=== PATIENT | female | born 1965 | race Caucasian/White ===

== ENCOUNTER 2016-12-13 17:50 | Emergency (ER) | payer MEDICARE ==
[2016-12-13] MEDS ORDERED: IPRATROPIUM-ALBUTEROL 3 ML NEB INHALATION STA (18:11)
[2016-12-13] MEDS ORDERED: methylPREDNISolone SOD SUCCI 125 MG/2 ML VIAL IV STA (18:11)
[2016-12-13] MEDS ORDERED: LORazepam 2 MG/ML SYRINGE IV STA (18:11)
[2016-12-13] MEDS ORDERED: SODIUM CHLORIDE 0.9% 1,000 ML IV STA (18:11)
--- NOTE | 2016-12-13 18:19 | ED ---
URI HPI - General Chief Complaint: Upper Respiratory Infection Stated Complaint: congestion,withdrawls Time Seen by Provider: 12/13/16 18:01 Source: patient, RN notes reviewed, old records reviewed Mode of arrival: ambulatory Limitations: no limitations - History of Present Illness Initial Comments: This is a 51-year-old female presenting to the emergency department from [facility] with chief complaint of shortness of breath, cough and congestion for the past day. She also reports that she is going through withdrawals and did not receive any Ativan today. She reports that she's had severe shaking. She denies any upper respiratory symptoms including cough until today. She states that she is coughing to the point where she's vomited. 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 Patient reports last drink was last Tuesday. She states that she also has a history of [employer] shunt. Per the records from [facility] they sent her here to have a CAT scan for concern of abnormalities with her shunt. Patient denies any headache or any new neurological complaints besides the shakiness. She relates that that is only 2 to withdrawals. Patient reports no specific fever or chills. She reports that she has no history of asthma. Surgical history includes hysterectomy, [employer] shunt, thyroidectomy. - Related Data Home Medications Medication Instructions Recorded Confirmed Levothyroxine Sodium [Synthroid] 200 mcg PO DAILY 12/13/16 12/13/16 Previous Rx's Medication Instructions Recorded Albuterol Inhaler [Ventolin Hfa 1 - 2 puff INHALATION Q6HR PRN #1 12/13/16 Inhaler] inhaler Azithromycin [Zithromax] 250 mg PO DIRECTED #4 tab 12/13/16 Benzonatate [Tessalon Perles] 100 mg PO TID PRN #20 capsule 12/13/16 predniSONE 50 mg PO DAILY #5 tablet 12/13/16 Allergies Allergy/AdvReac Type Severity Reaction Status Date / Time No Known Allergies Allergy Verified 12/13/16 19:03 Review of Systems ROS Statement: Those systems with pertinent positive or pertinent negative responses have been documented in the HPI. ROS Other: All systems not noted in ROS Statement are negative. Past Medical History Past Medical History: Pneumonia, Thyroid Disorder History of Any Multi-Drug Resistant Organisms: None Reported Past Surgical History: Hysterectomy Additional Past Surgical History / Comment(s): v/p shunt Past Psychological History: No Psychological Hx Reported Smoking Status: Current every day smoker Past Alcohol Use History: Abuse, Daily, Heavy Past Drug Use History: Heroin General Exam - General Exam Comments Initial Comments: This is a 51-year-old female. is actively shaking. It does appear that she is going through withdrawals. She alert and oriented. Limitations: no limitations General appearance: alert, in no apparent distress Head exam: Present: atraumatic, normocephalic, normal inspection Eye exam: Present: normal appearance, PERRL, EOMI. Absent: scleral icterus, conjunctival injection, periorbital swelling ENT exam: Present: normal exam, mucous membranes moist Neck exam: Present: normal inspection. Absent: tenderness, meningismus, lymphadenopathy Respiratory exam: Present: normal lung sounds bilaterally, wheezes (Bilateral wheezing.). Absent: respiratory distress, rales, rhonchi, stridor Cardiovascular Exam: Present: regular rate, normal rhythm, normal heart sounds. Absent: systolic murmur, diastolic murmur, rubs, gallop, clicks GI/Abdominal exam: Present: soft, normal bowel sounds. Absent: distended, tenderness, guarding, rebound, rigid Extremities exam: Present: normal inspection, full ROM, normal capillary refill. Absent: tenderness, pedal edema, joint swelling, calf tenderness Back exam: Present: normal inspection Neurological exam: Present: alert, oriented X3, CN II-XII intact Psychiatric exam: Present: normal affect, normal mood Skin exam: Present: warm, dry, intact, normal color. Absent: rash Course Vital Signs 12/13/16 12/13/16 12/13/16 17:51 19:09 19:18 Temperature 97.0 F L Pulse Rate 113 H 105 H 110 H Respiratory 22 Rate Blood Pressure 109/68 O2 Sat by Pulse 98 Oximetry 12/13/16 12/13/16 12/13/16 19:36 21:19 21:50 Temperature 99.1 F Pulse Rate 95 89 95 Respiratory 20 20 18 Rate Blood Pressure 114/79 107/65 142/83 O2 Sat by Pulse 98 98 98 Oximetry Medical Decision Making - Medical Decision Making This is a 51-year-old female presenting to the emergency department from [facility] with chief complaint of shortness of breath, cough and congestion for the past day. She also reports that she is going through withdrawals and did not receive any Ativan today. She reports that she's had severe shaking. She denies any upper respiratory symptoms including cough until today. She states that she is coughing to the point where she's vomited. 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 Patient reports last drink was last Tuesday. She states that she also has a history of [employer] shunt. Per the records from [facility] they sent her here to have a CAT scan for concern of abnormalities with her shunt. Patient denies any headache or any new neurological complaints besides the shakiness. She relates that that is only 2 to withdrawals. Patient reports no specific fever or chills. Patient given IV fluids, solumedrol, and breathing treatment. Patient reports her coughing has diminished. Patient lab work shows anemia. Patient informed of this. Patient was going through withdrawals, and recieved ativan. Pt CT is negative for any acute process. Patient given Rx for inhaler, steroids , tessalon perles. - Lab Data Result diagrams: 12/13/16 18:30 12/13/16 18:30 Lab Results 12/13/16 12/13/16 12/13/16 Range/Units 18:30 18:30 18:30 WBC 5.0 (3.8-10.6) k/uL RBC 2.59 L (3.80-5.40) m/uL Hgb 9.6 L (11.4-16.0) gm/dL Hct 28.7 L (34.0-46.0) % MCV 110.7 H (80.0-100.0) fL MCH 37.0 H (25.0-35.0) pg MCHC 33.4 (31.0-37.0) g/dL RDW 19.4 H (11.5-15.5) % Plt Count 118 L (150-450) k/uL Neutrophils % 70 % Lymphocytes % 22 % Monocytes % 4 % Eosinophils % 1 % Basophils % 0 % Neutrophils # 3.5 (1.3-7.7) k/uL Lymphocytes # 1.1 (1.0-4.8) k/uL Monocytes # 0.2 (0-1.0) k/uL Eosinophils # 0.0 (0-0.7) k/uL Basophils # 0.0 (0-0.2) k/uL Anisocytosis Slight Macrocytosis Marked PT 10.5 (9.0-12.0) sec INR 1.0 (<1.2) APTT 23.3 (22.0-30.0) sec Sodium 141 (137-145) mmol/L Potassium 3.6 (3.5-5.1) mmol/L Chloride 106 (98-107) mmol/L Carbon Dioxide 24 (22-30) mmol/L Anion Gap 11 mmol/L BUN 10 (7-17) mg/dL Creatinine 0.90 (0.52-1.04) mg/dL Est GFR (MDRD) Af Amer >60 (>60 ml/min/1.73 sqM) Est GFR (MDRD) Non-Af >60 (>60 ml/min/1.73 sqM) Glucose 117 H (74-99) mg/dL Lactic Ac Sepsis Rflx Plasma Lactic Acid Bakari (0.7-2.0) mmol/L Calcium 9.0 (8.4-10.2) mg/dL Total Bilirubin 0.6 (0.2-1.3) mg/dL AST 68 H (14-36) U/L ALT 52 (9-52) U/L Alkaline Phosphatase 135 H (38-126) U/L Troponin I (0.000-0.034) ng/mL Total Protein 7.3 (6.3-8.2) g/dL Albumin 3.9 (3.5-5.0) g/dL Urine Color Urine Appearance (Clear) Urine pH (5.0-8.0) Ur Specific [place] (1.001-1.035) Urine Protein (Negative) Urine Glucose (UA) (Negative) Urine Ketones (Negative) Urine Blood (Negative) Urine Nitrite (Negative) Urine Bilirubin (Negative) Urine Urobilinogen (<2.0) mg/dL Ur Leukocyte Esterase (Negative) Urine RBC (0-5) /hpf Urine WBC (0-5) /hpf Ur Squamous Epith Cells (0-4) /hpf Urine Bacteria (None) /hpf Urine Mucus (None) /hpf Urine Yeast (Budding) (None) /hpf 12/13/16 12/13/16 12/13/16 Range/Units 18:30 18:30 18:30 WBC (3.8-10.6) k/uL RBC (3.80-5.40) m/uL Hgb (11.4-16.0) gm/dL Hct (34.0-46.0) % MCV (80.0-100.0) fL MCH (25.0-35.0) pg MCHC (31.0-37.0) g/dL RDW (11.5-15.5) % Plt Count (150-450) k/uL Neutrophils % % Lymphocytes % % Monocytes % % Eosinophils % % Basophils % % Neutrophils # (1.3-7.7) k/uL Lymphocytes # (1.0-4.8) k/uL Monocytes # (0-1.0) k/uL Eosinophils # (0-0.7) k/uL Basophils # (0-0.2) k/uL Anisocytosis Macrocytosis PT (9.0-12.0) sec INR (<1.2) APTT (22.0-30.0) sec Sodium (137-145) mmol/L Potassium (3.5-5.1) mmol/L Chloride (98-107) mmol/L Carbon Dioxide (22-30) mmol/L Anion Gap mmol/L BUN (7-17) mg/dL Creatinine (0.52-1.04) mg/dL Est GFR (MDRD) Af Amer (>60 ml/min/1.73 sqM) Est GFR (MDRD) Non-Af (>60 ml/min/1.73 sqM) Glucose (74-99) mg/dL Lactic Ac Sepsis Rflx Plasma Lactic Acid Bakari 2.8 H* (0.7-2.0) mmol/L Calcium (8.4-10.2) mg/dL Total Bilirubin (0.2-1.3) mg/dL AST (14-36) U/L ALT (9-52) U/L Alkaline Phosphatase (38-126) U/L Troponin I <0.012 (0.000-0.034) ng/mL Total Protein (6.3-8.2) g/dL Albumin (3.5-5.0) g/dL Urine Color Light Yellow Urine Appearance Cloudy H (Clear) Urine pH 7.0 (5.0-8.0) Ur Specific [place] 1.002 (1.001-1.035) Urine Protein Negative (Negative) Urine Glucose (UA) Negative (Negative) Urine Ketones Negative (Negative) Urine Blood Negative (Negative) Urine Nitrite Negative (Negative) Urine Bilirubin Negative (Negative) Urine Urobilinogen <2.0 (<2.0) mg/dL Ur Leukocyte Esterase Large H (Negative) Urine RBC 18 H (0-5) /hpf Urine WBC 41 H (0-5) /hpf Ur Squamous Epith Cells 3 (0-4) /hpf Urine Bacteria Rare H (None) /hpf Urine Mucus Rare H (None) /hpf Urine Yeast (Budding) Occasional H (None) /hpf 12/13/16 Range/Units 19:09 WBC (3.8-10.6) k/uL RBC (3.80-5.40) m/uL Hgb (11.4-16.0) gm/dL Hct (34.0-46.0) % MCV (80.0-100.0) fL MCH (25.0-35.0) pg MCHC (31.0-37.0) g/dL RDW (11.5-15.5) % Plt Count (150-450) k/uL Neutrophils % % Lymphocytes % % Monocytes % % Eosinophils % % Basophils % % Neutrophils # (1.3-7.7) k/uL Lymphocytes # (1.0-4.8) k/uL Monocytes # (0-1.0) k/uL Eosinophils # (0-0.7) k/uL Basophils # (0-0.2) k/uL Anisocytosis Macrocytosis PT (9.0-12.0) sec INR (<1.2) APTT (22.0-30.0) sec Sodium (137-145) mmol/L Potassium (3.5-5.1) mmol/L Chloride (98-107) mmol/L Carbon Dioxide (22-30) mmol/L Anion Gap mmol/L BUN (7-17) mg/dL Creatinine (0.52-1.04) mg/dL Est GFR (MDRD) Af Amer (>60 ml/min/1.73 sqM) Est GFR (MDRD) Non-Af (>60 ml/min/1.73 sqM) Glucose (74-99) mg/dL Lactic Ac Sepsis Rflx Y Plasma Lactic Acid Bakari (0.7-2.0) mmol/L Calcium (8.4-10.2) mg/dL Total Bilirubin (0.2-1.3) mg/dL AST (14-36) U/L ALT (9-52) U/L Alkaline Phosphatase (38-126) U/L Troponin I (0.000-0.034) ng/mL Total Protein (6.3-8.2) g/dL Albumin (3.5-5.0) g/dL Urine Color Urine Appearance (Clear) Urine pH (5.0-8.0) Ur Specific [place] (1.001-1.035) Urine Protein (Negative) Urine Glucose (UA) (Negative) Urine Ketones (Negative) Urine Blood (Negative) Urine Nitrite (Negative) Urine Bilirubin (Negative) Urine Urobilinogen (<2.0) mg/dL Ur Leukocyte Esterase (Negative) Urine RBC (0-5) /hpf Urine WBC (0-5) /hpf Ur Squamous Epith Cells (0-4) /hpf Urine Bacteria (None) /hpf Urine Mucus (None) /hpf Urine Yeast (Budding) (None) /hpf 12/13/16 21:38 EKG shows normal sinus rhythm. Injury 93 bpm. Verbal 92. The rest her she needed to multiple seconds. QTQTC 362/04/08/ 1950 mils seconds. Elevation or T-wave inversion. No endometrial or ventricular arrhythmias. - Radiology Data Radiology results: report reviewed No acute intracranial hemorrhage or mass effect or midline shift seen. No evidence of hydrocephalus or children's epididymal edema. Intraventricular shunt catheter appropriately placed. With associated track encephalomalacia. Portions of the second occipital shunt terminating in the prepontine cistern. Chest x-ray was reviewed and shows no evidence of any acute cardiopulmonary process. Disposition Clinical Impression: Bronchitis Disposition: HOME SELF-CARE Condition: Good Instructions: Acute Bronchitis (ED) Additional Instructions: Patient resting medications as prescribed. Use inhaler as instructed. Return to the emergency department if any alarming signs or symptoms occur. Prescriptions: Albuterol Inhaler [Ventolin Hfa Inhaler] 1 - 2 puff INHALATION Q6HR PRN #1 inhaler PRN Reason: Shortness Of Breath Azithromycin [Zithromax] 250 mg PO DIRECTED #4 tab Benzonatate [Tessalon Perles] 100 mg PO TID PRN #20 capsule PRN Reason: Cough predniSONE 50 mg PO DAILY #5 tablet Referrals: None,Stated [Primary Care Provider] - 1-2 days Time of Disposition: 21:33
[2016-12-13 18:49] LABS: Anisocytosis Slight; Basophils % (A) 0 %; CH 36.3; Eosinophils % (A) 1 %; HCT 28.7 % (34.0-46.0); HDW 2.81; HGB 9.6 gm/dL (11.4-16.0); Luc # (Auto) 0.11; Luc % (Auto) 2; Lymphocytes # (A) 1.1 k/uL (1.0-4.8); Lymphocytes % (A) 22 %; MCHC 33.4 g/dL (31.0-37.0); MCV 110.7 fL (80.0-100.0); Macrocytosis Marked; Mean Platelet Volume 7.6; Monocytes # (A) 0.2 k/uL (0-1.0); Monocytes % (A) 4 %; Neutrophils # (A) 3.5 k/uL (1.3-7.7); Neutrophils % (A) 70 %; RBC 2.59 m/uL (3.80-5.40); RDW 19.4 % (11.5-15.5); WBC (Perox) 5.15
[2016-12-13 18:53] LABS: Appearance,Urine Cloudy (Clear); Bacteria,Urine Rare /hpf; Bilirubin,Urine Negative (Negative); Glucose,Urine (UA) Negative (Negative); Ketones,Urine Negative (Negative); Leukocyte Esterase,Urine Large (Negative); Mucus,Urine Rare /hpf; Nitrite,Urine Negative (Negative); Particle Count 8950; Protein,Urine Negative (Negative); RBC,Urine 18 /hpf (0-5); Specific Gravity,Urine 1.002 (1.001-1.035); Squamous Epithelial Cell,Urine 3 /hpf (0-4); UA Billing (MACRO vs. MICRO) MICRO; Urobilinogen,Urine <2.0 mg/dL (<2.0); WBC,Urine 41 /hpf (0-5)
--- NOTE | 2016-12-13 18:53 | XR ---
EXAMINATION TYPE: XR chest 2V DATE OF EXAM: 12/13/2016 portions of bilateral intraventricular shunts are seen although it is uncertai n which shunts are obtained in. COMPARISON: NONE HISTORY: History of alcoholic withdrawal TECHNIQUE: Frontal and lateral views of the chest are obtained. FINDINGS: There is no focal air space opacity, pleural effusion, or pneumothorax seen. The cardiac silhouette size is within normal limits. The osseous structures are intact. Bilateral intraventricu lar shunts are seen although it is uncertain with shunts are abandoned. Discontinuity is seen along t he left neck, and this shunt is likely a band and. No discontinuity is seen along the more medial aidan nt on the right. IMPRESSION: No acute cardiopulmonary process.
[2016-12-13 19:08] LABS: Partial Thromboplastin Time 23.3 sec (22.0-30.0); Prothrombin Time 10.5 sec (9.0-12.0)
[2016-12-13] MEDS ORDERED: SODIUM CHLORIDE 0.9% 1,000 ML IV ONE (19:09)
[2016-12-13] MEDS ORDERED: SODIUM CHLORIDE 0.9% 1,000 ML IV SCH (19:15)
[2016-12-13 19:18] LABS: ALT 52 U/L (9-52); AST 68 U/L (14-36); Alkaline Phosphatase 135 U/L (38-126); Anion Gap 11 mmol/L; Blood Urea Nitrogen 10 mg/dL (7-17); Carbon Dioxide 24 mmol/L (22-30); Chloride 106 mmol/L (98-107); Glucose 117 mg/dL (74-99); Non-African American GFR(MDRD) >60 (>60 ml/min/1.73 sqM); Potassium 3.6 mmol/L (3.5-5.1); Sodium 141 mmol/L (137-145); Total Bilirubin 0.6 mg/dL (0.2-1.3); Total Protein 7.3 g/dL (6.3-8.2)
--- NOTE | 2016-12-13 19:53 | CT ---
EXAMINATION TYPE: CT brain wo con DATE OF EXAM: 12/13/2016 COMPARISON: NONE HISTORY: Headaches. CT DLP: 1028.40 mGycm. Automated Exposure Control for Dose Reduction was Utilized. TECHNIQUE: CT scan of the head is performed without contrast. FINDINGS: There is no acute intracranial hemorrhage, mass effect, or midline shift identified. Port ions of shunt tubing is seen extending from the occipital soft tissues through a defect in C1 to the level of the clivus within the prepontine cistern. A second intraventricular catheter is seen from a right frontal approach terminating near the foramen of Monro with surrounding encephalomalacia along its tract. No evidence of hydrocephalus or transependymal edema. The globes are intact and the visual ized sinuses are clear. Craniotomy defect is seen in the right frontal region. Shunt tubing also exte nds along the subcutaneous tissues of the right parietal-occipital region to the right lateral neck. IMPRESSION: 1. No acute intracranial hemorrhage, mass effect, or midline shift is seen. 2. No evidence of hydrocephalus or transependymal edema. 2. Intraventricular shunt catheter, appropriately placed, with associated tract encephalomalacia. Por tions of a second occipital shunt terminating in the prepontine cistern.
[2016-12-13] MEDS ORDERED: PROMETHAZ-COD 6.25-10 MG/5 ML 5 ML CUP PO STA (21:22)
[2016-12-13] MEDS ORDERED: AZITHROMYCIN 500 MG TAB PO STA (21:25)
[2016-12-13] MEDS ORDERED: LORazepam 1 MG TAB PO STA (21:43)
[2016-12-13 21:51] VITALS: BP 142/83; PULSE 95; RESP 18; TEMP 99.1
== END 2016-12-13 22:10 | disposition home or self-care (01) ==
LOC: EC 17:50
DX: J40 Bronchitis, not specified as acute or chronic (principal); E07.9 Disorder of thyroid, unspecified; F17.200 Nicotine dependence, unspecified, uncomplicated; Z79.899 Other long term (current) drug therapy
CPT/HCPCS: 36415; 94640; 93005; 80053; 83605; 84484; 85025; 85610; 85730; 81001; 87040; 71020; 70450; 99284; 96374; 96375; 96361 ×3; J2060; J2930